=== PATIENT | female | born 1950 | race Caucasian/White ===

== ENCOUNTER → 2021-02-22 | Outpatient (CLI) | payer MEDICARE, OTHER ==
[~2021-02-22] MED LIST: BETAPACE80 MG PO; CELEXA40 MG PO; ELIQUIS2.5 MG PO; IBUPROFEN400 MG PO; IMDUR ER TAB 3030 MG PO; KLONOPIN TAB 00.5 MG PO; LIPITOR TAB 2020 MG PO; WARFARIN SODIUM5 MG PO
[2021-02-22 08:25] LABS: HEMOGLOBIN 12.2 gm/dl (12.3-15.3); RED BLOOD COUNT 4.19 M/UL (4.00-5.10); WHITE BLOOD COUNT 4.5 K/UL (4.5-11.0)
[2021-02-22 08:47] LABS: BUN/CREATININE RATIO 28 (0-10)
== END ==
LOC: CATH 07:25
PROVIDERS: Internal Medicine Cardiovascular Disease
DX: I48.19 Other persistent atrial fibrillation (principal); I25.119 Atherosclerotic heart disease of native coronary artery with unspecified angina pectoris; I10 Essential (primary) hypertension; R42 Dizziness and giddiness; F41.9 Anxiety disorder, unspecified; F09 Unspecified mental disorder due to known physiological condition; E78.2 Mixed hyperlipidemia; G47.34 Idiopathic sleep related nonobstructive alveolar hypoventilation; M54.30 Sciatica, unspecified side; E53.8 Deficiency of other specified B group vitamins; B34.9 Viral infection, unspecified; E55.9 Vitamin D deficiency, unspecified; Z79.01 Long term (current) use of anticoagulants; Z79.02 Long term (current) use of antithrombotics/antiplatelets; Z79.899 Other long term (current) drug therapy; Z53.9 Procedure and treatment not carried out, unspecified reason
CPT/HCPCS: 36415; 80048; 85027; 93005; J1200; J1742; J2250; J2310; J3010

== ENCOUNTER → 2021-05-23 | Outpatient (CLI) | payer MEDICARE, OTHER ==
[~2021-05-23] MED LIST changes: +AMIODARONE HCL200 MG PO; +AMIODARONE HCL400 MG PO; +ANTIVERT 12.512.5 MG PO; +JANTOVEN7.5 MG PO; +NITROSTAT 0.40.4 MG SL
[2021-05-23 08:27] LABS: HEMOGLOBIN 12.6 gm/dl (12.3-15.3); RED BLOOD COUNT 4.38 M/UL (4.00-5.10); WHITE BLOOD COUNT 5.9 K/UL (4.5-11.0)
[2021-05-23 08:57] LABS: BUN/CREATININE RATIO 22 (0-10)
== END ==
LOC: CATH 07:30 → EDSTATUS 07:30 → CATH 07:38
PROVIDERS: Internal Medicine Cardiovascular Disease
DX: I48.19 Other persistent atrial fibrillation (principal); I10 Essential (primary) hypertension; I25.10 Atherosclerotic heart disease of native coronary artery without angina pectoris; E78.2 Mixed hyperlipidemia; Z88.2 Allergy status to sulfonamides; Z88.8 Allergy status to other drugs, medicaments and biological substances; Z88.0 Allergy status to penicillin; Z79.01 Long term (current) use of anticoagulants; Z79.899 Other long term (current) drug therapy; Z20.822 Contact with and (suspected) exposure to COVID-19
CPT/HCPCS: 36415; 80048; 85027; 92960; 93005; J1200; J1742; J2250; J2310; J3010

== ENCOUNTER → 2021-06-01 | Outpatient (CLI) | payer MEDICARE, OTHER | LOC: HEART 5 10:01 | DX: R06.02 Shortness of breath (principal); Z79.899 Other long term (current) drug therapy | CPT/HCPCS: 94010; 94729 ==

== ENCOUNTER → 2021-07-26 | Outpatient (CLI) | payer MEDICARE, OTHER | LOC: CATH 07:15 | DX: I48.19 Other persistent atrial fibrillation (principal); I10 Essential (primary) hypertension; R06.02 Shortness of breath; R94.31 Abnormal electrocardiogram [ECG] [EKG] | CPT/HCPCS: 93005; J1200; J1742; J2250; J2310; J3010 ==